=== PATIENT | female | born 1975 | race Caucasian/White ===

== ENCOUNTER → 2018-02-07 | Outpatient (CLI) | payer BC ==
[~2018-02-07] MED LIST: ACYC400T PO; ALBU0.08 INH; ALBUAER2 INH; BACL20TA PO; CEPH500C2 PO; GABA-1220 PO; GLC/500 PO; MELO-84 PO; OXYC-594 PO; PRLSR20 PO; TRAZ50TA35 PO; TRIA0.1C55 TOP
== END | disposition home or self-care (01) ==
LOC: C.PAPS 11:31
PROVIDERS: ATTEND Nurse Practitioner Family
DX: Z01.419 Encounter for gynecological examination (general) (routine) without abnormal findings (principal)

== ENCOUNTER → 2018-02-07 | Outpatient (CLI) | payer BC | END | disposition home or self-care (01) | LOC: C.LABPBG 09:50 | PROVIDERS: ATTEND Nurse Practitioner Family | DX: E55.9 Vitamin D deficiency, unspecified (principal); G47.19 Other hypersomnia; E53.8 Deficiency of other specified B group vitamins; Z13.1 Encounter for screening for diabetes mellitus; Z13.220 Encounter for screening for lipoid disorders ==

== ENCOUNTER 2024-10-14 08:45 | Observation (INO) ==
--- NOTE | 2024-09-17 09:47 | PAT Medication Instructions ---
Medication Instructions Date of Service September 17, 2024 Home Medications Medication Instructions Recorded Spacer for Inhaler #1 ea 04/18/23 albuterol sulfate 90 mcg/actuation 1 - 2 puff inhalation Q4H PRN 08/21/24 aerosol inhaler shortness of breath or wheezing #6.7 grams Wheeled Walker #1 ea 08/29/24 semaglutide (weight loss) 1.7 1.7 mg (0.75 mL) subcut Q7D #3 mL 09/02/24 mg/0.75 mL subcutaneous pen injector oxycodone-acetaminophen 10 mg-325 1 tab PO QID PRN pain #120 tabs 09/04/24 mg tablet prednisone 10 mg tablet See Rx Instructions PO DAILY #63 09/08/24 tabs gabapentin 400 mg capsule 400 mg PO TID #90 caps 09/09/24 calcium 200 mg (as carbonate)-vitamin D3 10 mcg (400 unit) capsule (Calcium Petites) 2 - 3 cap PO UD pediatric multivitamin no.7-folic acid 100 mcg chewable tablet (Flintstones Tab Chew) 200 mcg PO DAILY lisinopril 2.5 mg tablet 2.5 mg PO QAM albuterol sulfate 90 mcg/actuation aerosol inhaler 1 - 2 puff inhalation Q4H PRN shortness of breath or wheezing semaglutide (weight loss) 1.7 mg/0.75 mL subcutaneous pen injector 1.7 mg (0.75 mL) subcut Q7D oxycodone-acetaminophen 10 mg-325 mg tablet 1 tab PO QID PRN pain prednisone 10 mg tablet See Rx Instructions PO DAILY gabapentin 400 mg capsule 400 mg PO TID acyclovir 400 mg tablet 400 mg PO BID baclofen 20 mg tablet 20 mg PO UD PRN muscle spasm cetirizine 10 mg tablet 10 mg PO QAM cholecalciferol (vitamin D3) 1,250 mcg (50,000 unit) capsule 50,000 unit PO Q7D escitalopram oxalate 20 mg tablet 20 mg PO QAM fluticasone propionate 44 mcg/actuation HFA aerosol inhaler 2 puff inhalation UD PRN Shortness Of Breath montelukast 10 mg tablet 10 mg PO QAM norethindrone acetate 1.5 mg-ethinyl estradiol 30 mcg tablet (D[place]iana) 1 tab PO QAM omeprazole 20 mg capsule,delayed release 20 mg PO QAM indigestion Continue as directed prednisone 10 mg tablet See Rx Instructions PO DAILY acyclovir 400 mg tablet 400 mg PO BID STOP 7 days prior to surgery semaglutide (weight loss) 1.7 mg/0.75 mL subcutaneous pen injector 1.7 mg (0.75 mL) subcut Q7D ASK your surgeon for instructions norethindrone acetate 1.5 mg-ethinyl estradiol 30 mcg tablet (Dahiana) 1 tab PO QAM DO NOT take the morning of surgery calcium 200 mg (as carbonate)-vitamin D3 10 mcg (400 unit) capsule (Calcium Petites) 2 - 3 cap PO UD pediatric multivitamin no.7-folic acid 100 mcg chewable tablet (Flintstones Tab Chew) 200 mcg PO DAILY lisinopril 2.5 mg tablet 2.5 mg PO QAM cetirizine 10 mg tablet 10 mg PO QAM cholecalciferol (vitamin D3) 1,250 mcg (50,000 unit) capsule 50,000 unit PO Q7D montelukast 10 mg tablet 10 mg PO QAM Take morning of surgery With a small sip of water, OTHERWISE NOTHING TO EAT OR DRINK AFTER MIDNIGHT: albuterol sulfate 90 mcg/actuation aerosol inhaler 1 - 2 puff inhalation Q4H PRN shortness of breath or wheezing (use if needed; please bring rescue inhaler with you to hospital day of surgery if possible) oxycodone-acetaminophen 10 mg-325 mg tablet 1 tab PO QID PRN pain (if needed) gabapentin 400 mg capsule 400 mg PO TID baclofen 20 mg tablet 20 mg PO UD PRN muscle spasm (if needed) escitalopram oxalate 20 mg tablet 20 mg PO QAM fluticasone propionate 44 mcg/actuation HFA aerosol inhaler 2 puff inhalation UD PRN Shortness Of Breath (if needed) omeprazole 20 mg capsule,delayed release 20 mg PO QAM indigestion Take evening before surgery calcium 200 mg (as carbonate)-vitamin D3 10 mcg (400 unit) capsule (Calcium Petites) 2 - 3 cap PO UD albuterol sulfate 90 mcg/actuation aerosol inhaler 1 - 2 puff inhalation Q4H PRN shortness of breath or wheezing (if needed) oxycodone-acetaminophen 10 mg-325 mg tablet 1 tab PO QID PRN pain (if needed) gabapentin 400 mg capsule 400 mg PO TID baclofen 20 mg tablet 20 mg PO UD PRN muscle spasm (if needed) fluticasone propionate 44 mcg/actuation HFA aerosol inhaler 2 puff inhalation UD PRN Shortness Of Breath (if needed) Other Notes If you have any questions please call us at [phone] or [phone] or [phone] or [phone]
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
[~2024-10-14 08:45] MED LIST changes: -ACYC400T PO; -ALBU0.08 INH; -ALBUAER2 INH; -BACL20TA PO; -CEPH500C2 PO; -GABA-1220 PO; -GLC/500 PO; -MELO-84 PO; -OXYC-594 PO; -PRLSR20 PO; +ROPIVACAINE 0.5% 5 MG/ML 30 ML VIAL ONE; -TRAZ50TA35 PO; -TRIA0.1C55 TOP
--- NOTE | 2024-10-14 09:06 | History & Physical Bridge Note ---
Date of Service October 14, 2024 History & Physical Bridge Note I have examined the patient, reviewed the History & Physical and in the interval since the performance of the History & Physical I have noted the following changes of clinical significance: no changes noted
[2024-10-14] MEDS: ACETAMINOPHEN 500 MG TAB PO SCH ×2 (09:11→15:13)
[2024-10-14] MEDS: CeleBREX 200 MG CAP PO SCH (09:11)
[2024-10-14] MEDS: LR 500ML BOLUS, THEN 15ML/HR IV SCH (09:29)
[2024-10-14] MEDS: LR 60ML/HR IV SCH (09:29)
[2024-10-14] MEDS: FAMOTIDINE 20 MG TAB PO SCH (09:30)
[2024-10-14] MEDS: METOCLOPRAMIDE HCL 10 MG TABLET PO SCH (09:31)
[2024-10-14] MEDS: dexAMETHasone**PF** 10 MG/ML VIAL IV SCH (09:31)
[2024-10-14 09:36] LABS: Pregnancy Test, Serum Negative (Negative)
[2024-10-14] MEDS ORDERED: MIDAZOLAM HCL 1 MG/ML 2ML VIAL ONE (09:50)
[2024-10-14] MEDS ORDERED: LIDOCAINE 2% 2 ML VIAL/AMP(20MG/ML) INFIL ONE (09:51)
[2024-10-14] MEDS ORDERED: ONDANSETRON INJ 2 MG/ML 2 ML VIAL ONE (09:51)
[2024-10-14] MEDS ORDERED: PROPOFOL IV EMULSION 10 MG/ML 100 ML VIAL IV ONE (09:51)
[2024-10-14] MEDS ORDERED: ONDANSETRON INJ 2 MG/ML 2 ML VIAL IV PRN ×2 (10:25→14:35)
[2024-10-14] MEDS ORDERED: KETOROLAC 30 MG/ML VIAL IV PRN (10:25)
[2024-10-14] MEDS ORDERED: ePHEDrine sulfate 50 MG/ML AMP IV PRN (10:25)
[2024-10-14] MEDS ORDERED: ATROPINE SULFATE 0.1 MG/ML 10ML SYR IV PRN (10:25)
[2024-10-14] MEDS ORDERED: HYDROmorphone INJ 1 MG/ML SYRINGE IV PRN (10:25)
[2024-10-14] MEDS ORDERED: DexMEDEtomidine HCL IV 100 MCG/ML VIAL IV ONE (10:30)
[2024-10-14] MEDS: ceFAZolin 2000MG 2,000 MG/15 ML SYR IV SCH ×2 (11:51→21:13)
[2024-10-14] MEDS: ORTHO JOINT ANESTHETIC ONE (12:21)
[2024-10-14] MEDS: ROPIV 0.5% 246mg, Ketorolac 30mg, EPINEPHrine 0.5mg in NSS INFIL SCH (12:21)
[2024-10-14] MEDS: TRANEXAMIC ACID 1,000 MG **IV Intra-op IV SCH (12:40)
--- NOTE | 2024-10-14 13:43 | Operative Report ---
PG Post Operative Report Pre & Post Diagnosis Operation Date: 10/14/24 10:40 Pre-Op Diagnosis: Left Knee Degenerative Joint Disease Post-Op Diagnosis: Left Knee Degenerative Joint Disease I identified the patient and participated in the time-out.: Yes Procedure Operation Date: 10/14/24 10:40 Actual Procedures p Left Total Knee Arthroplasty(Left) - Jj Curtis MD Surgeon Jj Curtis MD Freight Forwarder Jhoan Le PA-C Estimated Blood Loss 50 Findings Consistent with Post-Op Diagnosis Operative findings reveal advanced left knee lateral compartment DJD. She had full-thickness cartilage loss of the lateral femoral condyle and even more extensive on the lateral tibial plateau. She had some focal areas of full- thickness cartilage loss in the medial femoral condyle. The rest knee looked pretty well-preserved. She had a valgus deformity to her knee with a moderate- sized knee joint effusion. Specimens Left knee sent for pathology. Anesthesia Type Spinal MAC Complications none Disposition Accompanied Patient To Recovery: No Indications Patient is a 48-year-old female whose had a several year history of increasing left knee pain discomfort described to gotten worse over time. She been through extensive conservative treatment which became less successful. X-rays reveal advanced lateral compartment arthritis. She elected proceed with total knee arthroplasty. Description of Procedure Operative implants consist of: 1. Biomet Vanguard size 65 left posterior stabilized femoral component. 2. Biomet size 67 tibial tray. 3. 10 mm posterior stabilized polyethylene insert. 4. 28 x 8 all poly patella. The patient was taken the op room, identified, placed on the operating table in the supine position. All conductors were appropriately padded. IV antibiotics fibra anesthesia team. A spinal anesthetic and adductor canal block had been provided in the holding area. A Davila catheter was placed in sterile fashion. The left side was then placed. The left lower extremity was then prepped and draped in the usual sterile fashion. The left leg was elevated and exsanguinated with use of an Esmarch and the tourniquet was placed at 300 mmHg. An anterior approach to the left knee was then performed to longitudinal incision centered over the patella. Sharp dissection was carried through subcutaneous tissue down to the extensor mecha nism. A medial parapatellar arthrotomy incision was made. Some subperiosteal dissection was carried out medially. The fat pad was resected beneath the patella tendon. The lateral patellofemoral ligament was released. Patella subluxated laterally and the knee was flexed. The osteophytes taken off distal femur. The ACL and PCL were then released from the distal femur the tibia subluxated anteriorly. The external tibial alignment jig was then placed on the anterior face the tibia and adjusted 12 mm medially. Proximal tibial cut was made to take 3 to 4 mm from bone off the medial side. Tibia sized to size 67. Attention drawn the femur. The distal femur was entered with a sharp drill. The intramedullary canal was suction. A left 5 degree valgus cutting guide was placed. The distal femoral cutting block was pinned in place. Distal femoral cut was made to take an additional 3 mm of bone off distal femur. The femur was then sized to a size 65. The AP cutting block was pinned parallel to the epicondylar axis which was 5 degrees of external rotation. The anterior cut, anterior chamfer, posterior cut, posterior chamfer cuts were made. The box cutting guide was placed and j ust slightly lateral and the box cut was made. The knee was flexed. The posterior osteophytes and the remnants of the medial and lateral menisci were excised. The osteophytes taken off the posterior aspect the femur. Trial femoral component was placed. The tibial tray was pinned in Beata external rotation and the drill and stem punch used to create defect in the proximal tibia for the tibial tray. The knee was then trialed and the 10 mm insert fit most appropriately. Attention drawn the patella. The patella was cleaned of all soft tissues. Patella thickness measured 21 mm in thickness was cut down to 13. Sized to a size 28 patella. The lug holes were drilled for the 28 patella. The lateral aspect removed. The patella button was placed. Knee was taken through range of motion patella tracked nicely with no thumbs test. Attention then drawn to place the permanent components. All trial components were removed. Bone plug was placed into this femur limit blood loss. A double batch [place] G cement was mixed. A Biomet Vanguard size 65 left posterior stabilized femoral component, size 67 tibial tray, a 10 mm posterior stabilized polyethylene insert, and a 28 x 8 all poly patella then cemented in place. The knee was brought out into full extension till cement hardened. Final cement check was then performed. The pericapsular tissues injected with total of 100 cc of Ortho mix. The patient did receive 1 g tranexamic acid. The tourniquet was then let down for final tourniquet time of 57 minutes. Hemostasis surges electrocautery. The extensor Metros then closed with combination 1 PDS suture #1 Vicryl suture in a [id number] fashion. Extensor Meclomen checked found to be intact the subcutaneous tissue was then closed with 2 Dexon suture in a buried interrupted fashion skin was closed skin gregg. Leg was then cleaned and dried and a sterile dressing with Xeroform, 4 fours, sterile cast padding, Joe bandage were applied. Patient then transferred to the recovery room in stable condition. The patient tolerated procedure well and there were no complications. Jhoan Le, my physician assistant finance manager, was present for the entire procedure. His assistance was essential and required for appropriate patient positioning, prepping and draping, surgical exposure, performing the technical details of the operation, placement the implants, closure of the wound, and placement of the sterile bandage. I attest to the content of the Intraoperative Record and any orders documented therein. Any exceptions are noted below.
--- NOTE | 2024-10-14 14:08 | XRay Report ---
XR knee LT 1 or 2V routine CLINICAL HISTORY: Surgical Post Op COMPARISON: None FINDINGS: Left knee prosthesis shows no hardware complication. There is expected soft tissue gas. Sk in gregg are present. There is a benign appearing soft tissue calcification at the medial left thig h. IMPRESSION: Unremarkable postoperative exam. ACT 112: Negative or not required by law. Electronically signed by: Jamarcus Norman M.D. 10/14/2024 2:07 PM
[2024-10-14] MEDS ORDERED: ALUMINUM/MAGNESIUM SUSP 30 ML UDC PO PRN (14:35)
[2024-10-14] MEDS ORDERED: METOCLOPRAMIDE HCL INJ 5 MG/ML 2 ML VIAL IV PRN (14:35)
[2024-10-14] MEDS ORDERED: ALBUTEROL HFA 8 GM INHALER INH PRN (14:35)
[2024-10-14] MEDS ORDERED: BACLOFEN 20 MG TAB PO PRN ×2 (14:35→15:00)
[2024-10-14] MEDS ORDERED: MAGNESIUM HYDROXIDE SUSP 30 ML UDC PO PRN (14:35)
[2024-10-14] MEDS ORDERED: NALOXONE HCL 0.4 MG/1 ML VIAL/CARP IV PRN (14:35)
[2024-10-14] MEDS ORDERED: bisacodyL 10 MG SUPP PR PRN (14:35)
--- NOTE | 2024-10-14 14:44 | Anesthesiology Progress Note ---
Date of Service October 14, 2024 Anesthesia Post Procedure Vital Signs Vital Signs: Temp Pulse Resp BP Pulse Ox O2 Del Method O2 Flow Rate 10/14/24 14:35 37.0 C 76 15 139/83 95 Room Air 10/14/24 14:15 36.5 C 92 H 21 141/80 H 92 Room Air 0 10/14/24 14:05 76 14 147/77 H 95 Room Air 0 10/14/24 13:55 71 12 143/84 H 99 Oxymask 4 10/14/24 13:45 76 13 130/80 100 Oxymask 8 10/14/24 13:36 36.5 C 88 14 149/65 H 100 Oxymask 8 10/14/24 09:12 36.7 C 65 18 140/88 97 Room Air Pain Intensity Neck: Pain Intensity: 8 Transfer of Care Handoff Completed per policy Notes Mental Status: alert / awake / arousable Patient Amnestic to Procedure: Yes Nausea / Vomiting: adequately controlled Pain: adequately controlled Airway Patency, RR, SpO2: stable & adequate BP & HR: stable & adequate Hydration State: stable & adequate Neuraxial Anesthesia: was administered and sensory block is resolving Anesthetic Complications: no major complications apparent
[2024-10-14] MEDS: KETOROLAC TROMETHAMINE 15 MG/ML VIAL IV SCH (15:14)
[2024-10-14] MEDS: GABAPENTIN 400 MG CAP PO SCH (15:27)
[2024-10-14] MEDS: oxyCODONE HCL IR 5 MG TAB (IMMEDIATE RELEASE) PO PRN (16:04)
[2024-10-14] MEDS: HYDROmorphone INJ 0.5 MG/0.5 ML SYR IV PRN (19:47)
[2024-10-14] MEDS ORDERED: SENNA 8.6 MG TAB PO SCH (21:00)
[2024-10-14] MEDS: TRANEXAMIC ACID / 0.7% NACL 1,000 MG/100 ML BAG IV SCH (21:12)
[2024-10-14] MEDS: DOCUSATE SODIUM 100 MG CAP PO SCH (21:13)
[2024-10-14] MEDS: BACLOFEN 20 MG TAB PO SCH (21:13)
[2024-10-14] MEDS: SENNA 8.6 MG TAB PO SCH (21:13)
[2024-10-14] MEDS: ASPIRIN 81 MG ECTAB PO SCH (21:14)
[2024-10-14] MEDS: CALCIUM 600MG + VIT D 400 IU TAB PO SCH (21:14)
[2024-10-15 02:58] VITALS: O2SAT 95
[2024-10-15 07:12] VITALS: BP 134/80; PULSE 66; RESP 15; TEMP 98.8
[2024-10-15 08:20] LABS: Hemoglobin 12.3 g/dl (12.0-16.0); Mean Corpuscular Hemoglobin 32.2 pg (25.0-34.0); Mean Corpuscular Hgb Conc 33.2 g/dL (32.0-36.0); Mean Corpuscular Volume 96.9 fL (80.0-100.0); Mean Platelet Volume 10.5 fL (9.4-12.4); Platelet Count 236 K/uL (130-400); RDW Coefficient of Variation 12.5 % (11.5-14.5); Red Blood Count 3.82 M/uL (4.20-5.40); White Blood Count 10.72 K/ul (4.8-10.8)
[2024-10-15] MEDS: MONTELUKAST SODIUM 10 MG TABLET PO SCH (08:38)
[2024-10-15] MEDS: CETIRIZINE HCL 10 MG TABLET PO SCH (08:38)
[2024-10-15] MEDS: ESCITALOPRAM OXALATE 20 MG TAB PO SCH (08:38)
[2024-10-15] MEDS: MULTIVITAMIN CHEWABLE TAB PO SCH (08:38)
[2024-10-15] MEDS: PANTOprazole 40 MG TAB PO SCH (08:38)
[2024-10-15] MEDS: FLUTICASONE FUROATE 100MCG 14 PUFFS/INHALER INH SCH (08:39)
[2024-10-15] MEDS: BACLOFEN 20 MG TAB PO SCH (08:39)
[2024-10-15] MEDS: dexAMETHasone 10 MG in SYRINGE 0 ML IV SCH (08:48)
--- NOTE | 2024-10-15 08:50 | Orthopedic Progress Note ---
Date of Service October 15, 2024 Assessment & Plan (1) Status post total left knee replacement: (2) Aftercare following left knee joint replacement surgery: Plan 48-year-old woman POD# 1 s/p left total knee replacement, doing well overall. Pain is well-controlled. Medically stable. Postop x-rays well-appearing. She is neurologically intact. Plan: 1. DVT prophylaxis w/ TEDs, SCDs, ASA 81 mg BID. 2. PT/OT as tolerated. WBAT on the L LE. Encourage heel slides, SLR, full knee extension w/ quad sets. 3. Pain control doing well with current pain regimen. 4. Dressing change POD#2 per discharge instructions. 5. Disposition - plan to D/C home w/ home health PT later today once cleared by PT/OT. 6. F/u 2 weeks post-op w/ orthopedics (Dr. Curtis's team), or as previously scheduled, for first post-op visit. Subjective Patient is POD# 1 s/p left total knee arthroplasty by Dr. Curtis on 10/14/2024. Patient says her pain is well-controlled this morning. Denies CP, SOB, N/V, L LE paresthesia. She has home health PT arranged to come to the house for therapy. Patient says that she will be ready to go home today. Review of Systems All systems reviewed & are unremarkable except as noted in HPI & below. Physical Exam GENERAL: AA&Ox3, NAD. Pleasant, affect is calm. Sitting upright in bed and appears comfortable. RESPIRATORY: Normal respiratory effort with no signs of distress. CHEST/AXILLA: Chest movement symmetrical. No deformities noted. CARDIOVASCULAR: No edema noted. SKIN: [place], warm and dry. MS/EXTREMITY: Knee dressing & LIUDMILA wrap c/d/i. DEB hose donned to contralateral LE. + ankle dorsi/plantarflexion. NVI distally. Calf soft/NT. PT/DP pulses intact, 2+. Able to SLR without assistance. Results & Data Results & Data Laboratory Results . Laboratory Results - last 24 hr 10/15/24 07:21 WBC 10.72 RBC 3.82 L Hgb 12.3 Hct 37.0 MCV 96.9 MCH 32.2 MCHC 33.2 RDW Std Deviation 44.0 RDW Coeff of Florian 12.5 Plt Count 236 MPV 10.5 Sodium 144 Potassium 4.3 Chloride 112 H Carbon Dioxide 28 Anion Gap 4 BUN 11 Creatinine 0.76 Est Cr Clr Drug Dosing 101.6 eGFR 95.40 BUN/Creatinine Ratio 14.5 Glucose 94 Calcium 8.7 Diagnostic Findings . Knee X-Ray 10/14/24 13:35 XR knee LT 1 or 2V routine CLINICAL HISTORY: Surgical Post Op COMPARISON: None FINDINGS: Left knee prosthesis shows no hardware complication. There is expected soft tissue gas. Skin gregg are present. There is a benign appearing soft tissue calcification at the medial left thigh. IMPRESSION: Unremarkable postoperative exam. ACT 112: Negative or not required by law. Electronically signed by: Jamarcus Norman M.D. 10/14/2024 2:07 PM PG Care Time/CCT Total # of Minutes Spent Total Time Spent with Patient: Total time spent is greater than 50% in coordination of care (as documented) at patient's floor/unit and/or counseling patient: C[place] [address] Post Operative Follow-Up Patient Type Established History Problem Focused Exam Problem Focused Medical Decision Making Straight Forward Diagnoses Status post total left knee replacement Z96.652 Aftercare following left knee joint replacement surgery Z47.1; Z96.652
[2024-10-15] MEDS ORDERED: MULTIVITAMIN TAB PO SCH (09:00)
[2024-10-15] MEDS ORDERED: predniSONE 10 MG TABLET PO SCH (09:00)
[2024-10-15 09:29] LABS: Calcium 8.7 mg/dl (8.6-10.3); Potassium 4.3 mmol/L (3.5-5.1)
[2024-10-15 09:34] LABS: BUN Creatinine Ratio 14.5 (10-20); Creatinine Clr Calc Pharmacy 101.6 ml/min
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
[2024-10-17] MEDS ORDERED: ERGOCALCIFEROL 1250 MCG (50,000 UNITS) CAP PO SCH (09:00)
== END 2024-10-15 11:42 | disposition home health service (06) ==
LOC: ASU 08:45 → 3N 08:45